=== PATIENT | male | born 1975 | race Caucasian/White ===

== ENCOUNTER → 2016-08-23 | Outpatient (REF) | LOC: ZLAB.WCH 08:40 | PROVIDERS: Family Medicine | DX: Z01.89 Encounter for other specified special examinations (principal) ==

== ENCOUNTER → 2016-10-05 | Outpatient (REF) ==
[2016-10-05 20:37] LABS: THYROID STIMULATING HORMONE 1.85 uIU/mL (0.465-4.680)
== END ==
LOC: ZLAB.WCH 19:19
PROVIDERS: Family Medicine
DX: Z01.89 Encounter for other specified special examinations (principal)

== ENCOUNTER → 2017-12-12 | Outpatient (REF) ==
[2017-12-12 09:57] LABS: THYROID STIMULATING HORMONE 8.64 uIU/mL (0.465-4.680)
== END ==
LOC: ZLAB.WCH 09:12
PROVIDERS: Family Medicine
DX: Z01.89 Encounter for other specified special examinations (principal)

== ENCOUNTER → 2018-05-21 | Outpatient (REF) ==
[2018-05-21 13:21] LABS: THYROID STIMULATING HORMONE 7.38 uIU/mL (0.465-4.680)
== END ==
LOC: ZLAB.WCH 12:05
PROVIDERS: Family Medicine
DX: Z01.89 Encounter for other specified special examinations (principal)